=== PATIENT | male | born 1965 | race Caucasian/White ===

== ENCOUNTER → 2017-08-28 | Outpatient (CLI) | payer BC, OTHER | LOC: CARD 11:17 | PROVIDERS: ATTEND Internal Medicine Cardiovascular Disease | DX: R07.9 Chest pain, unspecified (principal); R00.2 Palpitations; I34.0 Nonrheumatic mitral (valve) insufficiency; Z83.3 Family history of diabetes mellitus; Z80.9 Family history of malignant neoplasm, unspecified; Z82.3 Family history of stroke; Z82.49 Family history of ischemic heart disease and other diseases of the circulatory system; Z72.0 Tobacco use | CPT/HCPCS: 93306 ==

== ENCOUNTER 2018-09-12 09:00 | Outpatient (CLI) | payer OTHER ==
[~2018-09-12] VITALS: Ht 180.3 cm; Wt 72.6 kg
[2018-09-12] MEDS ORDERED: SULF1TAB35 PO (15:46)
[2018-09-12] MEDS ORDERED: ALPR0.5T PO (15:46)
[2018-09-14] MEDS ORDERED: TRAM50TA2 PO (10:56)
== END 2018-09-12 15:51 | disposition home or self-care (01) ==
LOC: PREOP 09:00
PROVIDERS: ATTEND Surgery
DX: Z01.818 Encounter for other preprocedural examination (principal)

== ENCOUNTER 2018-09-14 08:25 | Day surgery (SDC) | payer OTHER ==
[~2018-09-14] VITALS: Ht 180.3 cm; Wt 67.3 kg
[~2018-09-14 08:25] MED LIST: ALPR0.5T PO; SULF1TAB35 PO
[2018-09-14] MEDS ORDERED: LACTATED RINGERS 1,000 ML IV PRN (08:36)
[2018-09-14] MEDS ORDERED: CATHETER FLUSH 10 ML SYR IV PRN (08:45)
[2018-09-14] MEDS ORDERED: VANCOMYCIN INJECTION 1,000 MG in NS (IVPB) 250 ML IV ONE (08:45)
[2018-09-14 09:49] VITALS: BP 134/84
[2018-09-14] MEDS ORDERED: proPOfol 200 MG/20 ML (DIPRIVAN) VIAL IV ONE (10:00)
[2018-09-14] MEDS ORDERED: fentaNYL INJECTION 100 MCG/2 ML AMP ONE (10:00)
[2018-09-14] MEDS ORDERED: MIDAZOLAM 2 MG/2 ML (VERSED) VIAL ONE (10:00)
--- NOTE | 2018-09-14 10:01 | Progress Note-Pre Operative ---
Pre-Operative Progress Note H&P Reviewed The H&P was reviewed, patient examined and no changes noted. Date Seen by Provider: Oct 25, 2018 Time Seen by Provider: 14:11 Date H&P Reviewed: Sep 14, 2018 Time H&P Reviewed: 10:01 Pre-Operative Diagnosis: Skin lesion right cheek HONORIO JENNINGS MD Sep 14, 2018 10:01
[2018-09-14] MEDS ORDERED: BUP/EPI 0.5% 1:200,000 (SENSORCAINE) 30 ML VIAL ONE (10:06)
[2018-09-14] MEDS ORDERED: ONDANSETRON 4 MG/2 ML (SDV) Z0FRAN ONE (10:47)
[2018-09-14] MEDS ORDERED: TRAM50TA2 PO (10:56)
--- NOTE | 2018-09-14 10:56 | Operative Report ---
Operative Report Date of Procedure/Surgery Sep 14, 2018 Surgeon (s) HONORIO JENNINGS MD Clothes Shaker (s): N/A Post-Operative Diagnosis same Procedure Performed excision of skin lesion right cheek Description of Procedure Anesthesia Type: MAC Estimated blood loss (mL): minimal Specimen(s) collected/removed skin lesion from the right cheek Description of the Procedure Indication for the procedure: This gentleman presented with a long-standing lesion over the right facial cheek with increased pigmentation of recent onset. Therefore, it was reasonable to perform full-thickness excision first. Should melanoma be found, the potential for additional surgery was highlighted. With regard to the procedure itself, complications of hematoma and wound infection were discussed with him. Informed consent was obtained. Description of the procedure: He was placed supine on the operative table and our CERTIFIED ADAPTED PHYSICAL EDUCATOR administered sedation, monitoring his vital signs. A gram of Ancef was administered intravenously as prophylaxis against wound infection. Right cheek was prepared draped in the usual sterile manner. Local anesthesia was achieved using 0.5 percent Marcaine with epinephrine. An elliptical incision 3 cm in length by 2 cm width was made and the lesion excised down to subcutaneous tissue. It was oriented with silk sutures and sent for histologic examination. Hemostasis was achieved using cautery and the incision closed using interrupted 6-0 nylon sutures. Steri-Strips were then applied. He tolerated the procedure well and was taken to the recovery room in a stable condition. Findings of the Procedure see operative report Allergies and Home Medications Allergies Coded Allergies: Penicillins (Verified Allergy, Unknown, childhood allergy, 09/12/18) Home Medications Alprazolam 0.5 Mg Tablet, 0.5 MG PO BID PRN for ANXIETY, (Reported) Sulfamethoxazole/Trimethoprim 1 Each Tablet, 1 EACH PO BID, (Reported) Patient Home Medication List Home Medication List Reviewed: Yes HONORIO JENNINGS MD Sep 14, 2018 10:56
--- NOTE | 2018-09-14 10:57 | Discharge Inst-Simple/Standard ---
Discharge Inst-Standard Discharge Medications New, Converted or Re-Newed RX: RX on Chart Patient Instructions/Follow Up Plan of Care/Instructions/FU: follow-up with my nurse in 10 days for suture removal Activity as Tolerated: Yes Discharge Diet: No Restrictions HONORIO JENNINGS MD Sep 14, 2018 10:57
[2018-09-14] MEDS ORDERED: morphine INJ 10 MG/ML 1ML (SYR OR VIAL) IVP ONE (11:00)
[2018-09-14] MEDS ORDERED: ONDANSETRON 4 MG/2 ML (SDV) Z0FRAN IVP PRN (11:00)
[2018-09-14 11:25] VITALS: BP 118/72
[2018-09-14 12:00] VITALS: BP 134/80
[2018-09-14 12:15] VITALS: BP 134/80
--- NOTE | 2018-09-14 13:00 | Anesthesia-General Post-Op ---
General Patient Condition Mental Status/LOC: Same as Preop Cardiovascular: Satisfactory Nausea/Vomiting: Absent Respiratory: Satisfactory Pain: Controlled Complications: Absent Post Op Complications Complications None Follow Up Care/Instructions Patient Instructions None needed. Anesthesia/Patient Condition Patient Condition Patient is doing well, no complaints, stable vital signs, no apparent adverse anesthesia problems. No complications reported per nursing. D/C home per [facility] [place] Criteria: Yes MIRIAM BUCHANAN CRNA Sep 14, 2018 13:00
== END 2018-09-14 12:20 | disposition home or self-care (01) ==
LOC: SDC 08:25
PROVIDERS: ATTEND Surgery
DX: L82.1 Other seborrheic keratosis (principal); D23.39 Other benign neoplasm of skin of other parts of face; F41.9 Anxiety disorder, unspecified; I08.1 Rheumatic disorders of both mitral and tricuspid valves; F17.210 Nicotine dependence, cigarettes, uncomplicated; Z79.899 Other long term (current) drug therapy
CPT/HCPCS: 87081; 93005